=== PATIENT | female | born 1945 ===

== ENCOUNTER 2025-02-17 06:00 | Day surgery (SDC) | payer OTHER ==
[2025-02-12 12:35] VITALS: BP 150/81
[2025-02-12 12:36] LABS: BASO % 0.8 % (0.1-1.2); EOS # 0.08 (0.04-0.54); EOS % 1.2 % (0.7-7.0); LYMPH # 1.81 (1.18-3.74); LYMPH % 28.0 % (19.3-53.1); MEAN PLATELET VOLUME 10.10 fl (9.4-12.4); MONO # 0.53 (0.24-0.82); MONO % 8.2 % (4.7-12.5); NEUT # 3.97 (1.56-6.13); NEUT % 61.5 % (34.0-71.1); RED CELL DISTRIBUTION WIDTH 12.9 % (11.6-14.4)
[2025-02-12 12:50] LABS: URINE APPEARANCE Clear; URINE BILIRRUBIN Negative (NEGATIVE); URINE BLOOD Negative; URINE COLOR Yellow; URINE GLUCOSE Negative (NEGATIVE); URINE KETONE Negative (NEGATIVE); URINE LEUKOCYTE Small; URINE NITRATE Negative; URINE PROTEIN Negative (NEGATIVE); URINE UROBILINOGEN 0.2 E.U./dl
[2025-02-12 12:53] LABS: URINE BACTERIA 87.5 uL (0.0-1933); URINE EPITHELIAL CELLS 1.6 uL (0.0-38.8); URINE WBC 6.3 uL (0.0-23.2)
[2025-02-12 12:56] LABS: URINE CAST 0.00 uL (0.0-1.40); URINE RBC 1.9 uL (0.0-20.8)
[2025-02-12 13:01] LABS: INR 0.98
[2025-02-12 13:17] LABS: ALT/SGPT 25.0 U/L (12-78); AST/SGOT 22.0 U/L (15-37); BILIRUBIN TOTAL 0.85 mg/dL (0.3-1.2); BUN CREA RATIO 28.0 (7.0-25.0); CREATININE SERUM 0.71 mg/dL (0.55-1.02); GFR 79.82; GLOBULINA 3.3 G/DL (2.4-3.5); GLUCOSE FASTING 92.0 mg/dL (65-100); OSMOLALITY SERUM 285.0 MOSM/KG (275-295)
[~2025-02-17] VITALS: Ht 157.5 cm; Wt 77.1 kg
[~2025-02-17 06:00] MED LIST: ZESTORETIC 20-1 EACH PO
[2025-02-17] MEDS ORDERED: POVIDONE-IODINE 118 ML BOTT TOP ONE (09:17)
== END 2025-02-17 14:45 | disposition home or self-care (01) ==
LOC: CIR.AMB 06:00
PROVIDERS: ATTEND Obstetrics & Gynecology Gynecology
DX: N95.0 Postmenopausal bleeding (principal); N88.2 Stricture and stenosis of cervix uteri; N84.0 Polyp of corpus uteri